=== PATIENT | female | born 1980 | race Caucasian/White ===

== ENCOUNTER 2025-06-23 10:10 | Emergency (ER) | payer OTHER, SELFPAY ==
[2025-06-23 10:21] VITALS: BP 116/83; PULSE 120; RESP 18; TEMP 37.7; O2SAT 98
--- NOTE | 2025-06-23 10:43 | ED_ITS ---
HPI - URI/Sore Throat General Chief Complaint: Upper Respiratory Infection Stated Complaint: Flu Symptoms Source: patient and RN notes reviewed Mode of arrival: ambulatory Limitations: no limitations History of Present Illness HPI Narrative: 45-year-old female presented for complaint of headache, body aches, sinus pressure/congestion, cough, fever/chills. onset 2 days. Son tested positive for influenza day of onset. Denies sob, wheezing, n/v/d. Taking otc meds for symptoms. MD elicited complaint: cough Related Data Allergies Allergy/AdvReac Type Severity Reaction Status Date / Time No Known Allergies Allergy Verified 06/23/25 10:20 Review of Systems Review of Systems: per HPI Exam Narrative: GENERAL: Ill-appearing, nontoxic no acute distress. EYES: conjunctivae clear ENT: Mucous membranes moist. TM pearly marcial with dull light reflex bilaterally; no tragal tenderness. Oropharynx not erythematous without lesions or exudate, no drooling, no hoarseness, no trismus, uvula midline. No tripod positioning, muffled voice, soft palate or pharyngeal wall bulging NECK: Supple. No lymphadenopathy CHEST: Clear to auscultation, breath sounds equal. No wheezing, rhonchi, rales, or stridor. No respiratory distress, speaks in full sentences. HEART: Regular rate and rhythm. No murmur heard. SKIN: Warm, dry, no rash. NEURO: Alert and oriented x3. PSYCH: Normal mood and affect Course Course Level of Care: Express Care Visit Vital Signs Vital signs: Vital Signs Temperature 99.9 F H 06/23/25 10:21 Pulse Rate 120 H 06/23/25 10:21 Respiratory Rate 18 06/23/25 10:21 Blood Pressure 116/83 06/23/25 10:21 Pulse Oximetry 98 06/23/25 10:21 Temperature 99.9 F H 06/23/25 10:21 Pulse Rate 120 H 06/23/25 10:21 Respiratory Rate 18 06/23/25 10:21 Blood Pressure 116/83 06/23/25 10:21 Pulse Oximetry 98 06/23/25 10:21 MDM MDM Narrative Medical decision making narrative: positive influenza. Discussed physical exam findings. Advised supportive measures and signs/symptoms to go to the ER. Pt is appropriate for outpt treatment and f/u. Differential Diagnosis Differential Diagnosis: Influenza, covid, sinusitis, OM, strep pharyngitis, URI Discharge Plan Discharge Clinical Impression: Influenza Patient Disposition: Home Condition: Stable Instructions: Influenza (ED) Additional Instructions: Influenza positive You should avoid crowds until you are fever free for 24 hours without the use of fever reducing medications, or the symptoms are improved Rest. Drink plenty of fluids. Tylenol 1000mg every 8 hours as needed for pain/fever Recommend Flonase spray and Zyrtec (or Claritin/Guera) for sinus pressure/congestion over the counter Cough syrup may cause drowsiness; avoid driving or take it at night time. Follow up with your primary care provider as needed in 1-2 weeks Go to the ER for worsening symptoms or concerns Patient Language: [place] Island[place] Prescriptions: New oseltamivir [Tamiflu] 75 mg capsule 75 mg PO Q12H 5 Days Qty: 10 0RF Follow-up/Referrals: PHYSICIAN,CLINICAL NEUROPSYCHOLOGIST [Primary Care Provider, Internal Medicine]
[2025-06-23 11:05] LABS: EDINFLUASCREEN Positive (Negative); EDINFLUBSCREEN Negative (Negative)
== END 2025-06-23 10:58 | disposition home or self-care (01) ==
PROVIDERS: Emergency Provider Nurse Practitioner Family
DX: J10.1 Influenza due to other identified influenza virus with other respiratory manifestations (principal)
CPT/HCPCS: 87804; 99203; G0463